=== PATIENT | male | born 1975 | race Caucasian/White ===

== ENCOUNTER 2016-09-11 20:01 | Emergency (ER) | payer OTHER ==
[~2016-09-11] VITALS: Ht 167.6 cm; Wt 70.0 kg
[2016-09-11 20:16] VITALS: BP 121/80; PULSE 72; RESP 16; O2SAT 97
--- NOTE | 2016-09-11 23:52 | ED.REPORT ---
HPI-Rash / Abscess Date of Service Sep 11, 2016 ED Provider: Dr. 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 The rash extends into is his back. He is not sure what he was exposed to. Associated symptoms include cough that has been present for the past few days. He denies any difficulty breathing. He has not taken anything for the rash.He did drive to the ED. Nursing Notes Stated Complaint: BROKE OUT IN HIVES Chief Complaint: Allergic Reaction Nursing Notes Reviewed: Yes Allergies: Coded Allergies: Penicillins (Verified Allergy, Mild, 09/11/16) General Time Seen by MD: 23:52 Chief Complaint Rash Hx Obtained From: Patient Arrived By: Walk-in Onset Occurred: 5 - 8 hours ago Symptom Duration: Since onset Location: : Generalized Severity: Current: Mild Severity: Maximum: Mild Recent Healthcare: No recent doctor visit Similar Sx Previous: No Past Medical History Past Medical History Denies Hx of CHF. Denies Hx of CA Denies: Hypertension Social History Patient [facility] in [facility]. Ambulatory Status Independent Review of Systems Review of Systems Note: Denies difficulty breathing. Constitutional: Denies: Chills, Fever Respiratory: Reports: Non-productive cough GI: Denies: Abdominal pain Skin: Reports Rash Complete sys rev & neg: except as marked. Physical Exam Initial Vital Signs Vital Signs (First) Date Time Temp Pulse Resp B/P Pulse Ox O2 Delivery O2 Flow Rate FiO2 09/11/16 20:16 36.2 72 16 121/80 97 Room Air Initial VS: Reviewed General/Constitutional: Awake, Alert Skin: Warm Diffuse urticaria Head / Eyes: Atraumatic, Normocephalic, PERRL, EOMI ENT: Atraumatic, Airway patent Respiratory / Chest: Atraumatic, Breath sounds NL, Breath sounds = bilat, No respiratory distress, No rales, No rhonchi, No wheezing Cardiovascular: Heart rate NL, Regular rhythm, Heart sounds NL, No gallop, No murmurs, No rubs Neurologic: Oriented X3, Speech NL Abdomen: No guarding, No rebound Re-Eval/Medical Decision Med Decision/Clinical Course The hives were nearly resolved. No evidence of angioedema. He looks and feels much better. We will discharge home with a course of steroids. Epinephrine EpiPen will be provided as well. Re-Evaluation/Progress : Time of Eval: 23:55 Re-Evaluation/Progress Note: Explained diagnosis, and plan for discharge. Patient understands and agrees with the plan. All questions addressed. Counseled Regarding: Diagnosis, Lab results, Need for follow-up, When/why to return to ED Discharge & Departure Impression: Primary Impression: Diffuse urticaria Disposition: Home Discharge Condition All VS Reviewed: Yes Condition: Stable Patient Instructions: Urticaria (ED) Additional Instructions: Set up a follow-up with your primary care physician and consider referral to an commercial property administrator. Finish the Medrol Dosepak. [id number] Benadryl as directed when you can take this safely. The Benadryl can be sedating so do not drive or operate machinery while taking this. Fill the EpiPen prescription. If you ever have any angioedema or swelling of the . Tongue or lips then using epinephrine as instructed and be seen right away. Try to figure l out what it is you are allergic to avoid in the future. Do not hesitate to return if any problems or worsening symptoms. Referrals: NOPCP (PCP) [facility] Amanda Attestation Portions of this note were transcribed by Fran Ledesma. I, Dr. Mansfield personally performed the history, physical exam and medical decision-making; I reviewed and confirmed the accuracy of the information in the transcribed note. Signed by: Amanda Glaser, 09/12/2016, 2325. copies to: [facility] Kun Mansfield DO Sep 11, 2016 23:52 Fran Ledesma Sep 11, 2016 23:56
[2016-09-11] MEDS ORDERED: diphenhydrAMINE 50 mg Capsule PO ONE (23:55)
[2016-09-11] MEDS ORDERED: Dexamethasone 20 mg/2 mL Oral Solution PO ONE (23:55)
[2016-09-11] MEDS ORDERED: diphenhydrAMINE 25 mg Capsule PO ONE (23:55)
== END 2016-09-12 01:43 | disposition home or self-care (01) ==
LOC: SED 20:01
DX: L50.9 Urticaria, unspecified (principal); R05 Cough; Z88.0 Allergy status to penicillin